=== PATIENT | female | born 1985 | race Caucasian/White ===

== ENCOUNTER 2019-12-05 00:01 | Inpatient (IN) | payer BC, SELFPAY ==
[2019-11-11 13:41] VITALS: BMI 23.0
[2019-12-05] VITALS (55 sets, daily range): BP systolic 84–135; BP diastolic 43–91; PULSE 66–142; RESP 14–15; TEMP 36.7–37.1; O2SAT 95–100; BMI 22.4
--- NOTE | 2019-12-05 00:01 | LDADM ---
This patient, Eun Montana, was admitted to Labor/Delivery/Recovery 109 on 12/05/19 at 00:01. Plans for labor, pain management and were discussed with patient. Patient/family oriented to hospital policies and general routines including ID bracelet, bed and alarms, visiting hours, pain management, procedures, bathroom and other care routines, personal items, smoking policy, room service/diet and guest tray routines, infant security routines, and visiting hours. Patient/Family are encouraged to report perceived risks to care and to ask questions if they do not understand what they are told or what they should do. See OBIX for further documentation.
[2019-12-05] MEDS: LACTATED RINGERS 1,000 ML 125 ML IV CONT ×2 (00:48→01:44)
[2019-12-05] MEDS: OXYTOCIN 30 UNITS/NS 500 ML 30 UNITS/500 ML BAG IV CONT (00:48)
[2019-12-05 00:49] LABS: Basophils Percent Auto 0.3 % (0.2-1.2); Eosinophils Absolute Auto 0.2 K/mm3 (0-0.3); Eosinophils Percent Auto 1.6 % (0-4.4); Hematocrit 37.8 % (37.0-47.0); Immature Granulocyte Absolute 0.05 K/mm3 (0.00-0.031); Immature Granulocyte Percent A 0.4 % (0-0.5); Lymphocytes Absolute Auto 2.98 K/mm3 (0.9-3.2); Lymphocytes Percent Auto 22.3 % (18.3-44.2); Mean Corpuscular HGB Conc 34.4 g/dl (32-36); Mean Corpuscular Hemoglobin 32.1 pg (26-34); Mean Corpuscular Volume 93.3 fl (80-100); Monocytes Absolute Auto 1.2 K/mm3 (0.1-0.6); Monocytes Percent Auto 8.8 % (2.6-8.5); Neutrophils Absolute Auto 8.9 K/mm3 (1.3-6.7); Neutrophils Percent Auto 66.6 % (45.5-73.1); Platelet Count Result 262 k/mm3 (150-375); Red Blood Count 4.05 M/mm3 (4.2-5.4); Red Cell Distribution Width 13.2 % (11.5-14.5); White Blood Count 13.3 K/mm3 (4.5-10.0)
[2019-12-05 01:08] LABS: Glucose Point of Care 72 (65-105)
--- NOTE | 2019-12-05 02:00 | WPDANESEPPF ---
Anes - Initial Pre Proc Eval Date/Time: 12/05/19 02:00 Surgeon: Ishaan De Leon MD Pre Op Diagnosis: Induction of labor Patient Data Age: 34 Gender: F Height: 5 ft 1 in Weight: 53.75 kg Last Vital Signs Pulse 91 12/05/19 02:00 BP 102/65 12/05/19 02:00 Pulse Ox 96 12/05/19 01:58 Allergies Allergy/AdvReac Type Severity Reaction Status Date / Time No Known Drug Allergies Allergy Unknown Verified 09/19/18 08:28 Home Medications Medication Instructions Recorded Confirmed Type -bnss fum-folic ac-om3 1 pkg PO DAILY 11/11/19 11/11/19 History [One A Day Women's DHA] Laboratory Tests 12/05/19 12/05/19 12/05/19 00:27 00:27 00:27 WBC 13.3 K/mm3 H K/mm3 (4.5-10.0) RBC 4.05 M/mm3 L M/mm3 (4.2-5.4) Hgb 13.0 g/dL g/dL (12.0-15.0) Hct 37.8 % % (37.0-47.0) MCV 93.3 fl fl (80-100) MCH 32.1 pg pg (26-34) MCHC 34.4 g/dl g/dl (32-36) RDW 13.2 % % (11.5-14.5) Plt Count 262 k/mm3 k/mm3 (150-375) MPV 11.0 fl H fl (7.4-10.4) Immature Gran % (Auto) 0.4 % % (0-0.5) Neut % (Auto) 66.6 % % (45.5-73.1) Lymph % (Auto) 22.3 % % (18.3-44.2) Charlton % (Auto) 8.8 % H % (2.6-8.5) Eos % (Auto) 1.6 % % (0-4.4) Baso % (Auto) 0.3 % % (0.2-1.2) Lymph # (Auto) 2.98 K/mm3 K/mm3 (0.9-3.2) Charlton # (Auto) 1.2 K/mm3 H K/mm3 (0.1-0.6) Eos # (Auto) 0.2 K/mm3 K/mm3 (0-0.3) Baso # (Auto) 0.0 K/mm3 K/mm3 (0.0-0.1) Abs Immat Gran (auto) 0.05 K/mm3 H K/mm3 (0.00-0.031) Absolute Neuts (auto) 8.9 K/mm3 H K/mm3 (1.3-6.7) Absolute Nucleated RBC 0.0 K/mm3 K/mm3 (0.0-0.012) Nucleated RBC % 0.0 % % (0.0-0.2) POC Capillary Glucose RPR Pending Blood Type A Positive Antibody Screen Negative 12/05/19 01:03 WBC RBC Hgb Hct MCV MCH MCHC RDW Plt Count MPV Immature Gran % (Auto) Neut % (Auto) Lymph % (Auto) Charlton % (Auto) Eos % (Auto) Baso % (Auto) Lymph # (Auto) Charlton # (Auto) Eos # (Auto) Baso # (Auto) Abs Immat Gran (auto) Absolute Neuts (auto) Absolute Nucleated RBC Nucleated RBC % POC Capillary Glucose 72 mg/dl mg/dl (65-105) RPR Blood Type Antibody Screen Patient hx anesthesia problems: other (one sided epid) Family hx anesthesia problems: none PMFSH Past Medical History Medical History (Updated 12/05/19 @ 02:01 by Collin Perez MD) PTSD (post-traumatic stress disorder) Family History Family History Grandparent Chronic obstructive pulmonary disease Diabetes mellitus Social History Social History Smoking packs per day: 0.5 Smoking cigarettes per day: 10.0 Years smoked: 10 Smoking pack-years: 5.00 Smoking status: Current every day smoker Tobacco type: cigarettes Second hand tobacco smoke exposure: Yes Substance use: never Gender identity (if verbalized by the patient): Female Spiritual care concerns: No Anes - Eval Final PreProcedure Day of Procedure 12/05/19 02:00 Patient weight: normal Heart: regular rate and rhythm Lungs: decreased breath sounds Neurological: alert and oriented ASA classification: III Emergent: no Anesthetic plan: proceed Anesthesia type and monitoring: regional epidural and standard monitoring Informed Consent: The patient's anesthetic plan and its attendant risks and benefits were discussed with the patient/family/POA. Questions were solicited and answers provided to the satisfaction of the patient/family/POA.
--- NOTE | 2019-12-05 03:53 | WPDHPUPDATE1 ---
History and Physical Update Update Date/Time: 12/05/19 03:53 History and Physical has been reviewed, including an updated exam of the patient. There are NO changes in the patient's condition. Risks, benefits, and alternatives have been discussed and questions answered. Patient agrees to proceed with procedure.
--- NOTE | 2019-12-05 03:53 | WPDOBADMIT ---
Obstetrics - Admit Note Admission Note: record reviewed. No pertinent additions to the history and/or any subsequent changes in the physical findings that are not consistent with the expected course of the were found. Additions to the history and/or subsequent changes in the physical findings follow. None.
--- NOTE | 2019-12-05 03:53 | PM.OBPRVD ---
OB - Delivery Note Procedure Delivery date: 12/05/19 Route of delivery: Episiotomy description: None Laceration description: None Specimen: No Estimated blood loss (mL): 200 Anesthesia type: Epidural Disposition: floor Narrative: Patient prepped and draped in the usual manner for this procedure. Maternal expulsive efforts readily delivered vertex. Rest of baby was delivered without difficulty. Cord was clamped and cut baby was placed on maternal abdomen. Placenta delivered spontaneously. Cervix final vulva were inspected no lacerations or tears. At this point seizure was considered terminated immediate postoperative condition of mother and baby were both excellent. Baby Weeks of gestation at delivery: 39 gender: Male Weight (pounds): 7 Weight (ounces): 3 presentation: vertex score one minute: 9 score five minutes: 9
[2019-12-05] MEDS: OXYTOCIN 30 UNITS/NS 500 ML 30 UNITS/500 ML BAG 125 UNITS IV CONT (04:16)
[2019-12-05] MEDS: WITCH HAZEL 40 PADS 1 PAD TOPICAL (05:52)
[2019-12-05] MEDS: BENZOCAINE 20% AER SPR (*SP) 56 GM CAN 1 SPRAY TOPICAL (05:52)
[2019-12-05] MEDS: LANOLIN (LANSINOH) 7.5 GM CREAM 1 APPLIC TOPICAL (05:53)
[2019-12-05] MEDS: IBUPROFEN 600 MG TABLET PO ×2 (08:16→17:39)
[2019-12-05] MEDS: MULTIVIT/MIN/PREN/FOL AC/IRON TABLET 1 TAB PO (08:16)
[2019-12-05] MEDS: DOCUSATE SODIUM 100 MG CAPSULE PO (08:16)
[2019-12-05 08:51] LABS: Rapid Plasma Reagin Non-Reactive (NonReactive)
--- NOTE | 2019-12-05 10:00 | PC.NURSE ---
Consult with pt., discussed initiating pumping with in Level II. Mother is resting and states she will call out when ready.
--- NOTE | 2019-12-05 14:00 | PC.NURSE ---
Breast pump provided due to in Level II. Instructions given on breast pump care and usage, pumping schedule, nipple care, and collection and storage of breast milk. Encouraged [id number], breast massage and manual expression to stimulate supply. Assessed patient for correct flange size, placement and draw. Patient verbalizes and demonstrates understanding of instructions.
--- NOTE | 2019-12-05 17:54 | OBPPTRN ---
Patient transferred to post room #282 via (wheelchair ). Support person present. Oriented to unit, room, information board, rooming in, admission packet and security measures. Patient verbalizes understanding.
[2019-12-05] MEDS: ACETAMINOPHEN 325 MG TABLET 650 MG PO (20:03)
[2019-12-06] MEDS: IBUPROFEN 600 MG TABLET PO ×2 (01:31→08:23)
[2019-12-06] MEDS: ACETAMINOPHEN 325 MG TABLET 650 MG PO (04:02)
[2019-12-06 05:33] LABS: Hematocrit 31.5 % (37.0-47.0); Hemoglobin 10.5 g/dL (12.0-15.0)
--- NOTE | 2019-12-06 07:46 | P.DS_ITS ---
OB - DS: Summary OB Procedures : None OB Procedures Intrapartum: Spontaneous Vag Delivery OB Procedures: : None Time Spent with Patient Time attestation: Total time spent providing and/or coordinating discharge services: DS: Data Data Completed and Pending Labs on day of discharge: Labs from last 24 hours 12/06/19 12/05/19 05:26 00:27 Hgb 10.5 L Hct 31.5 L RPR Non-reactive Discharge Plan Discharge Discharging Clinician: Ishaan De Leon Patient Disposition: Home, Self-Care Activity: as tolerated Diet: as tolerated Patient Instructions: How to Stop Smoking (DC), Antibiotic Form Stand Alone Forms: General Discharge Information Follow-up/Referrals: Ishaan De Leon MD [Physician] - 3 Weeks Discharge Medications: New ibuprofen 600 mg Tablet 600 mg PO Q6H PRN (Reason: Cramping) Qty: 30 RF: 0 Continued One A Day Women's DHA 28 mg iron- 800 mcg Combo Pack 1 pkg PO DAILY RF: 0 Date of admission: 12/05/19 00:01 Primary Care Provider: PHYSICIAN,[employer] TEAM MEMBER Admitting Provider: Ishaan De Leon Attending physician on admission: Ishaan De Leon
[2019-12-06 08:00] VITALS: BP 93/56; PULSE 64; RESP 14; TEMP 36.3
[2019-12-06] MEDS: DOCUSATE SODIUM 100 MG CAPSULE PO (08:23)
[2019-12-06] MEDS: MULTIVIT/MIN/PREN/FOL AC/IRON TABLET 1 TAB PO (08:23)
--- NOTE | 2019-12-06 09:30 | PC.NURSE ---
Consult with pt., mother reports infant is eagerly latching without difficulties or discomfort. Reviewed feeding cues, frequencies, duration of feedings, feeding elimination flow sheet, and signs of adequate intake. Requested mother to call out for RN/LC assistance next feeding for observation of feeding. Instructed feeding should be initiated three hours from start of last feeding or if feeding cues are noted before. Mother voiced understanding of information shared.
--- NOTE | 2019-12-06 14:10 | PC.NURSE ---
Mother called out for observation of feeding. Mother is able to independently latch with appropriate positioning/alignment. is latched deeply nursing eagerly, with steady draws and frequent swallowing noted. Reviewed signs of a correct latch, effective nursing and suck swallow ratio. Infant was able to maintain latch without discomfort to mother. Nipple care reviewed.
[2019-12-09 09:23] VITALS: BP 107/67; PULSE 90; RESP 18; TEMP 37
== END 2019-12-06 15:20 | disposition home or self-care (01) | DRG 560 ==
LOC: ANHLDR 05:37 → ANHOB2 07:11
PROVIDERS: Admitting Provider Obstetrics & Gynecology; Visit Provider Obstetrics & Gynecology
DX: O99.334 Smoking (tobacco) complicating childbirth (principal); Z37.0 Single live birth; Z3A.39 39 weeks gestation of pregnancy; O36.8330 Maternal care for abnormalities of the fetal heart rate or rhythm, third trimester, not applicable or unspecified; F17.210 Nicotine dependence, cigarettes, uncomplicated; O99.344 Other mental disorders complicating childbirth; F43.12 Post-traumatic stress disorder, chronic
CPT/HCPCS: 36415; 85014; 85018; 85025; 86592; 86850; 86900; 86901; A9270; J2590; J2795; J7120

== ENCOUNTER 2021-02-23 07:29 | Outpatient (CLI) | payer BC, SELFPAY ==
--- NOTE | 2021-02-23 | ECHO_ITS ---
Patient Info Name: Eun Montana Age: 35 years : 1985 Gender: Female Ht: 60 in Wt: 93 lbs BSA: 1.33 m2 HR: 62 bpm BP: 105 / 60 mmHg Heart Rhythm: Sinus Rhythm Exam Date: 02/23/2021 8:29 AM Exam Location: [facility] Pulmonary Patient Status: Outpatient Admit Date: 02/23/2021 Staff Ordering Physician: Chris, Federica Tai MD Battery Builder: Shelia Barbour RDCS Attending Provider: Chris, Federica Tai MD Exam Type: CA echo doppler color flow Study Info Indications R55 - Syncope and collapse Complete two-dimensional, color flow and Doppler transthoracic echocardiogram is performed. Summary 1. Complete two-dimensional, color flow and Doppler transthoracic echocardiogram is performed. 2. Left ventricular chamber dimension is normal. 3. Left ventricular systolic function is normal, estimated at 55-60%. 4. There is no increased left ventricular wall thickness. 5. The left ventricular diastolic function is normal. 6. There is mild tricuspid valve regurgitation. 7. The aortic valve is possibly bicuspid. Left Ventricle Left ventricular chamber dimension is normal. Left ventricular systolic function is normal, estimated at 55-60%. There is no increased left ventricular wall thickness. The left ventricular diastolic function is normal. Right Ventricle Right ventricular chamber dimension is normal. Right ventricular systolic function is normal. Left Atria Left atrial chamber dimension is normal. Right Atria Right atrial chamber dimension is normal. Atrial Septum Intact interatrial septum visualized by color flow imaging. Aortic Valve The aortic valve is possibly bicuspid. There is no aortic valve stenosis. There is trace aortic valve regurgitation. Pulmonic Valve The pulmonic valve is normal. There is no pulmonic valve stenosis. There is trace pulmonic regurgitation. Mitral Valve The mitral valve has normal leaflets. There is no mitral valve stenosis. There is trace mitral valve regurgitation. Tricuspid Valve The tricuspid valve leaflets are normal. There is no significant tricuspid valve stenosis. There is mild tricuspid valve regurgitation. No pulmonary hypertension, estimated pulmonary arterial systolic pressure is 30 mmHg. Pericardium/Pleural The pericardium appears normal. There is no pericardial effusion. Inferior Vena Cava Normal inferior vena cava with <50% collapse upon inspiration consistent with elevated right atrial pressure, 10 mmHg. Aorta The aortic root size at the sinus of Valsalva is normal. The prox ascending aorta size is normal. Left Ventricular Outflow Tract Name Value Normal LVOT 2D LVOT Diameter 1.7 cm LVOT Doppler LVOT Peak Gradient 2 mmHg LVOT Mean Gradient 1 mmHg LVOT VTI 15 cm LVOT VTI/AV VTI Ratio 0.5 LVOT Stroke Volume 35 ml LVOT CO 1.9 l/min LVOT CI 1.4 l/min/m2 Pulmonic Valve
--- NOTE | ~2021-02-23 | XR_ITS ---
EXAMINATION: XR lumbar spine 2-3V DATE: 02/23/2021 10:11 INDICATION: Low back pain TECHNIQUE: Anteroposterior and lateral views of the lumbar spine, and cone-down lateral view of the l umbosacral junction were obtained. COMPARISON: None. FINDINGS: There is no fracture, dislocation, or subluxation. The vertebral body heights, alignment, a nd intervertebral disc spaces are normal. The paravertebral soft tissues are unremarkable. IMPRESSION: 1. No acute osseous abnormality. Reviewed, dictated and finalized at location A.
== END 2021-02-23 07:30 | disposition home or self-care (01) ==
PROVIDERS: PCP Family Medicine; Visit Provider Family Medicine
DX: R55 Syncope and collapse (principal); R63.4 Abnormal weight loss; I36.1 Nonrheumatic tricuspid (valve) insufficiency
CPT/HCPCS: 72100; 93306

== ENCOUNTER 2022-01-10 17:11 | Emergency (ER) | payer BC, SELFPAY ==
--- NOTE | ~2022-01-10 | XR_ITS ---
EXAMINATION: XR chest 2V Exam Date/Time: 01/10/2022 19:10 CDT CLINICAL HISTORY: reports pleurisy since 06/24 left rib pain today Comparison: 12/27/11. RESULT: Lines, tubes, and devices: None. Lungs and pleura: Clear. Cardiomediastinal silhouette: Stable cardiomediastinal silhouette. Other: No acute osseous or upper abdominal finding. IMPRESSION: No acute cardiopulmonary process Reviewed, dictated and finalized at location K.
[2022-01-10 17:38] VITALS: BP 119/60; PULSE 81; RESP 21; TEMP 36.6; O2SAT 100
[2022-01-10 19:05] VITALS: BP 119/60; PULSE 81; RESP 16; TEMP 36.8; O2SAT 100
--- NOTE | 2022-01-10 19:38 | ED.BACK ---
HPI - Back Pain/Injury General Chief Complaint: Back Pain/Injury Stated Complaint: rib/back/hip pain Time Seen by Provider: 01/10/22 19:03 History of Present Illness HPI Narrative: 36-year-old female presents to the emergency room with complaints of left lower rib cage pain. Patient states the pain started after she coughed. Patient states that she has a frequent history of pleuritis, but this pain feels different. Patient states that she felt a pop after she coughed. Pain is worse with movement and palpation. Related Data Home Medications Medication Instructions Recorded Confirmed One A Day Women's DHA 1 pkg PO DAILY 11/11/19 11/11/19 Allergies Allergy/AdvReac Type Severity Reaction Status Date / Time No Known Allergies Allergy Verified 01/10/22 17:43 Review of Systems Review of Systems: CONSTITUTIONAL: Denies fever, chills, or sweats. EYES: Denies visual changes, redness, or discharge. ENT: Denies rhinorrhea, congestion, sore throat, or otalgia. CARDIOVASCULAR: Denies chest pain, palpitations, or edema. RESPIRATORY: Denies cough or dyspnea. GASTROINTESTINAL: Denies abdominal pain, nausea, vomiting, or diarrhea. GENITOURINARY: Denies dysuria or hematuria. SKIN: Denies rash or itching. MUSCULOSKELETAL: Reports left lateral rib cage pain NEUROLOGIC: Denies headache, numbness, dizziness, or weakness. PSYCHIATRIC: Denies anxiety or depression. PMFSH Past Medical History Medical History PTSD (post-traumatic stress disorder) Family History Family History Grandparent Chronic obstructive pulmonary disease Diabetes mellitus Social History Social History Smoking packs per day: 0.5 Smoking cigarettes per day: 10.0 Years smoked: 10 Smoking pack-years: 5.00 Smoking status: Current every day smoker Tobacco type: cigarettes Second hand tobacco smoke exposure: Yes Substance use: never Gender identity (if verbalized by the patient): Female Spiritual care concerns: No Exam Narrative: GENERAL: Well-appearing, well-nourished, and in no acute distress. HEAD: Normocephalic, atraumatic. EYES: PERRLA and EOMI. CHEST: Clear to auscultation. No respiratory distress. No wheezes rales or rhonchi. Tenderness to the left lower lateral ribs. No ecchymosis. No flail chest. HEART: Regular rate and rhythm. No murmur heard. Normal peripheral pulses. ABDOMEN: Soft, nontender, nondistended, normal active bowel sounds. EXTREMITIES: Normal range of motion. No edema. SKIN: Warm, dry, no rash. NEURO: No focal deficits. Alert and oriented x3. PSYCH: Normal mood and affect. Course Vital Signs Vital signs: Vital Signs Temperature 36.6 C 01/10/22 17:38 Pulse Rate 81 01/10/22 17:38 Respiratory Rate 21 H 01/10/22 17:38 Blood Pressure 119/60 01/10/22 17:38 Pulse Oximetry 100 01/10/22 17:38 Temperature 36.8 C 01/10/22 19:05 Pulse Rate 81 01/10/22 19:05 Respiratory Rate 16 01/10/22 19:05 Blood Pressure 119/60 01/10/22 19:05 Pulse Oximetry 100 01/10/22 19:05 MDM - Back Pain/Injury Imaging Data Radiologist's impression: Impressions Chest X-Ray 01/10/22 19:36 IMPRESSION: No acute cardiopulmonary process Discharge Plan Discharge Clinical Impression: Chest wall muscle strain Qualifiers: Encounter type: initial encounter Qualified Code(s): S29.011A - Strain of muscle and tendon of front wall of thorax, initial encounter Patient Disposition: Home, Self-Care Condition: Stable Instructions: Antibiotic Form, Thoracic Back Strain (ED) Prescriptions: New methocarbamol 500 mg tablet 500 mg PO TID Qty: 14 RF: 0 No Action One A Day Women's DHA 28 mg iron- 800 mcg Combo Pack 1 pkg PO DAILY RF: 0 ibuprofen 600 mg Tablet 600 mg PO Q6H PRN (Reason:
[2022-01-10] MEDS: methocarbamoL 500 MG TABLET PO (20:15)
== END 2022-01-10 20:16 | disposition home or self-care (01) ==
PROVIDERS: Emergency Provider Nurse Practitioner Family; PCP Family Medicine
DX: S29.011A Strain of muscle and tendon of front wall of thorax, initial encounter (principal); F17.210 Nicotine dependence, cigarettes, uncomplicated; X50.9XXA Other and unspecified overexertion or strenuous movements or postures, initial encounter
CPT/HCPCS: 71046; 99283; A9270

== ENCOUNTER 2022-01-17 11:01 | Outpatient (CLI) | payer BC, SELFPAY ==
--- NOTE | ~2022-01-17 | XR_ITS ---
EXAM: XR ribs LT 2V HISTORY: NO INJURY PAINLEFT LOWER LATERAL PAIN AND POPPING . COMPARISON: 01/10/2022. FINDINGS: Normal mineralization. Hypoplastic right 12th rib. No nondisplaced mildly angulated subacu te fracture of the left ninth and 10th anterolateral rib. Multiple old healed rib fractures on the le ft. No other fractures identified. No lytic or blastic lesion. Joint spaces maintained. No erosion or periosteal change. Soft tissues within normal limits. IMPRESSION: Mildly angulated, otherwise nondisplaced subacute fractures of the left anterolateral shayan th and 10th ribs. Reviewed, dictated and finalized at location K. IMPRESSION: Mildly angulated, otherwise nondisplaced subacute fractures of the left anterolateral ninth and 10th ribs.
== END 2022-01-17 11:02 | disposition home or self-care (01) ==
PROVIDERS: PCP Family Medicine; Visit Provider Physician Assistant
DX: R07.81 Pleurodynia (principal); S22.42XA Multiple fractures of ribs, left side, initial encounter for closed fracture
CPT/HCPCS: 71100

== ENCOUNTER 2023-12-29 09:10 | Emergency (ER) | payer BC, SELFPAY ==
[2023-12-29 09:40] VITALS: BP 110/52; PULSE 76; RESP 16; TEMP 36.7; O2SAT 100
--- NOTE | 2023-12-29 10:13 | ED.FEMALEGU ---
HPI - Female Genitourinary General Chief complaint: Urogenital-Female Stated complaint: UTI Time Seen by Provider: 12/29/23 10:13 Source: patient Mode of arrival: ambulatory Limitations: no limitations History of Present Illness HPI Narrative: 38-year-old female presents with complaint of urinary frequency, urgency, dysuria for 2 days. Reports suprapubic cramping. Afebrile. Denies nausea vomiting. All systems reviewed and negative except as noted above. Related Data Allergies Allergy/AdvReac Type Severity Reaction Status Date / Time No Known Allergies Allergy Verified 12/29/23 09:31 Review of Systems Review of Systems: CONSTITUTIONAL: Denies fever, chills, or sweats. EYES: Denies visual changes, redness, or discharge. ENT: Denies rhinorrhea, congestion, sore throat, or otalgia. CARDIOVASCULAR: Denies chest pain, palpitations, or edema. RESPIRATORY: Denies cough or dyspnea. GASTROINTESTINAL: Denies abdominal pain, nausea, vomiting, or diarrhea. GENITOURINARY: Reports dysuria, frequency, urgency. Denies hematuria. SKIN: Denies rash or itching. MUSCULOSKELETAL: Denies back pain, joint pain, or myalgia. NEUROLOGIC: Denies headache, numbness, or weakness. PSYCHIATRIC: Denies anxiety or depression. All other systems reviewed are negative, except as documented in HPI. PMFSH Past Medical History Medical History PTSD (post-traumatic stress disorder) Family History Family History Grandparent Chronic obstructive pulmonary disease Diabetes mellitus Social History Social History Smoking packs per day: 0.5 Smoking cigarettes per day: 10.0 Years smoked: 10 Smoking pack-years: 5.00 Smoking status: Current every day smoker Tobacco type: cigarettes Second hand tobacco smoke exposure: Yes Substance use: never Gender identity (if verbalized by the patient): Female Spiritual care concerns: No Comments At time of signature, agree with nursing past medical, surgical, social and family history. There is no relevant family history pertinent to the presenting complaint. Exam Narrative: GENERAL: This is a well-nourished, well-developed patient, in no apparent distress. HEAD: normocephalic, atraumatic. EYES: PERRL. Sclera clear/white. Vision is grossly intact. EARS: External ears normal NOSE: External nose normal NECK: Neck supple, non-tender without lymphadenopathy, masses or thyromegaly. CARDIOVASCULAR: Regular rate and rhythm without murmurs, gallops, or rubs. RESPIRATORY: Clear to auscultation. Breath sounds equal bilaterally. No wheezes, rales, or rhonchi. SKIN: warm, Dry, intact with no suspicious lesions or rash, good texture and turgor. NEURO: awake, alert, and oriented to person, place and time. There were no obvious focal neurologic abnormalities. EXTREMITIES: No joint tenderness, effusion, or edema noted. Course Course Level of Care: Express Care Visit Vital Signs Vital signs: Vital Signs Temperature 36.7 C 12/29/23 09:40 Pulse Rate 76 12/29/23 09:40 Respiratory Rate 16 12/29/23 09:40 Blood Pressure 110/52 L 12/29/23 09:40 Pulse Oximetry 100 12/29/23 09:40 Oxygen Delivery Room Air 12/29/23 09:40 Temperature 36.7 C 12/29/23 09:40 Pulse Rate 76 12/29/23 09:40 Respiratory Rate 16 12/29/23 09:40 Blood Pressure 110/52 L 12/29/23 09:40 Pulse Oximetry 100 12/29/23 09:40 Oxygen Delivery Room Air 12/29/23 09:40 reviewed MDM - Female Genitourinary MDM Narrative Medical decision making narrative: Patient is aware of diagnosis, understands and agrees to treatment plan. Anticipatory guidance given. Patient agrees to follow-up as directed and is aware of reasons to seek care at the emergency department. Portions of this record may have been created with voice recog
== END 2023-12-29 10:30 | disposition home or self-care (01) ==
PROVIDERS: Emergency Provider Nurse Practitioner Family; PCP Family Medicine
DX: N39.0 Urinary tract infection, site not specified (principal); B96.20 Unspecified Escherichia coli [E. coli] as the cause of diseases classified elsewhere; F17.210 Nicotine dependence, cigarettes, uncomplicated
CPT/HCPCS: 81003; 87077; 87086; 87088; 87186; 99213; G0463

== ENCOUNTER 2025-02-07 11:00 | Emergency (ER) | payer OTHER, SELFPAY ==
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
--- NOTE | ~2025-02-07 | XR_ITS ---
AP and lateral views of the right tibia/fibula Clinical History: Pain Findings: No acute fracture or dislocation is seen. Osseous alignment is anatomic. Joint spaces are p reserved without significant erosive or degenerative change. Soft tissues are unremarkable. Impression: Unremarkable right tib-fib radiographs. Reviewed, dictated and finalized at location . Impression: Unremarkable right tib-fib radiographs.
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
--- NOTE | ~2025-02-07 | XR_ITS ---
Left Shoulder Technique: AP and scapular Y views were obtained. Clinical History: Pain Findings: No fracture or dislocation is seen. Osseous alignment is anatomic. The glenohumeral and acr omioclavicular joint spaces are preserved. Soft tissues are unremarkable. Impression: Unremarkable left shoulder radiographs. Reviewed, dictated and finalized at [facility]. Impression: Unremarkable left shoulder radiographs.
--- NOTE | ~2025-02-07 | XR_ITS ---
XR femur LT min 2V 02/07/2025 13:54 Indication: Left leg pain Procedure: 2 views left femur Comparison: No prior studies for comparison. Findings: No fracture, subluxation or dislocation. No significant soft tissue abnormality. No foreign bodies. Impression: 1: No acute fracture. Reviewed, dictated and finalized at location A. Impression: 1: No acute fracture.
--- NOTE | ~2025-02-07 | XR_ITS ---
Right wrist Technique: PA, oblique, lateral, and ulnar deviation views were obtained. Clinical History: Pain Findings: No acute fracture or dislocation is seen. Osseous alignment is anatomic. Joint spaces are p reserved. Soft tissues are unremarkable. Impression: Unremarkable right wrist radiographs. Reviewed, dictated and finalized at location . Impression: Unremarkable right wrist radiographs.
--- NOTE | ~2025-02-07 | XR_ITS ---
Right Shoulder Technique: AP and scapular Y views were obtained. Clinical History: Pain Findings: No fracture or dislocation is seen. Osseous alignment is anatomic. The glenohumeral and acr omioclavicular joint spaces are preserved. Soft tissues are unremarkable. Impression: Unremarkable right shoulder radiographs. Reviewed, dictated and finalized at [facility]. Impression: Unremarkable right shoulder radiographs.
--- NOTE | ~2025-02-07 | XR_ITS ---
XR foot LT min 3V 02/07/2025 13:54 Indication: Left foot pain Procedure: 4 views left foot Comparison: No prior studies for comparison. Findings: No fracture, subluxation or dislocation. No significant soft tissue abnormality. No foreign bodies. Impression: 1: No acute fracture. Reviewed, dictated and finalized at location A. Impression: 1: No acute fracture.
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
--- OUTSIDE RECORDS SUMMARY | 2025-02-07 11:02 | XMS_ITS | CONTINUITY OF CARE DOCUMENT ---
Author Name juwan echeverria Address Unknown Organization [facility] Address [address] [place] [address] Phone [phone] Care Team Providers Care Er Physician Name Role Phone Young BYNMU, Pablo Unavailable DWAYNE BYNUM, MOUNIKA Tai Unavailable [phone] DWAYNE BYNUM, MOUNIKA Tai Unavailable [phone] PROBLEMS Condition Status Date Provider Notes Cardiovascular screening active Pablo lowe MD Family History of Hypertension: active Shanika Vidal MD Chest pain active Pablo Vidal MD Shortness of breath (SOB) active Pablo gerard MD Dizziness active Pablo Vidal MD Near Syncope active Pablo Vidal MD Anxiety/ depression active Pablo Simon Headaches active Pablo Vidal MD ENCOUNTERS Date Type Provider Location Encounter Diag nosis - In-person encounter Office Visit Pablo Vidal MD [place] [facility] Cardiovascular screeningFamily History of Hypertension:Chest painShortness of breath (SOB)DizzinessNear SyncopeAnxiety/ depressionHeadaches VITAL SIGNS Date Observation Value Provider Body Mass Index (Ratio) 17.97 kg/m2 Shanika Vidal MD blood pressure, diastolic 60 mm[Hg] Susan nkLogic blood pressure, systolic 110 mm[Hg] Linn Mcdermott blood pressure, resting No Cam HaqueTino blood pressure, diastolic 60 mm[Hg] Ju ReynosoTino blood pressure, systolic 110 mm[Hg] Yeny ReynosoTino oxygen saturation, oximetry 98 % [facility] E&M 16 /min [facility] pulse rate 74 /min [facility] weight E&M 92 [lb_av] [facility] height E&M 60 [in_i] [facility] ALLERGIES No Known Drug Allergies HISTORY OF MEDICATION USE Medication Status Instructions Dates Provider Indications Com ments escitalopram oxalate 10 mg tablet active Take 1 tablet by mouth once a day Tammy AngelesTino SOCIAL HISTORY Date Observation Value Provider Underweight yes Pablo Vidal MD number of grandchildren Pablo Vidal MD social history reviewed E&M revi ewed - no changes required Pablo Vidal MD number of years as a smoker 20 a [facility], total pack/day 1 [facility] cigarette use yes [facility] smoking status Current every day smoker Trey khan AngelesAdamaTino FAMILY HISTORY Family Member Condition Maternal Grandmother Family History of H ypertension: Maternal Grandmother Family History of D iabetes: Paternal Grandmother Family History of C ongestive Heart Failure: Paternal Grandmother Family History of D iabetes: INSURANCE PROVIDERS Payer name Policy type / Coverage type [employer] libertarian ID [facility] [id number] ADVANCE DIRECTIVES Name Date DISCUSSED - NO DECISION MADE TREATMENT PLAN Date Name Performer [id number],C,Continues on Escitalopram. Pablo Vidal MD [id number],C,R eports intermittent chest pain and SOB on exertion when performing routine daily activities such as cleaning. She had a recent echo showing normal LV function, EF normal at 55-60%. Recent lab work was unremarkable. Her EKG today shows the patient in sinus rhythm. Pablo Vidal MD [id number],C,P atient reports intermittent episodes of near syncope during which she becomes suddenly dizzy and nauseous. Symptoms have become more frequent within the last year. Will arrange 2 week heart monitor. Pablo Vidal MD Cardiology:Continues on Escitalo pra. Pablo Vidal MD Cardiology:Reports i ntermittent chest pain and SOB on exertion when performing routine daily activities such as cleaning. She had a recent echo showing normal LV function, EF normal at 55-60%. Recent lab work was unremarkable. Her EKG today shows the patient in sinus rhythm. Pablo Vidal MD Cardiology:Patient r eports intermittent episodes of near syncope during which she becomes suddenly dizzy and nauseous. Symptoms have become more frequent within the last year. Will arrange 2 week heart monitor. Pablo Vidal MD Date Name Monitor - Telemetry (Mobile Cardiac) HISTORY OF PROCEDURES Procedure Date Procedure Name Provider Procedure Notes S tatus EKG Pablo Vidal MD complet ed
--- OUTSIDE RECORDS SUMMARY | 2025-02-07 11:17 | XMS_ITS | CONTINUITY OF CARE DOCUMENT ---
Author Name juwan echeverria Address Unknown Organization [facility] Address [address] [place] [address] Phone [phone] Care Team Providers Care Marine Operations Coordinator Name Role Phone Young BYNUM, Pablo Unavailable DWAYNE BYNUM, MOUNIKA Tai Unavailable DWAYNE BYNUM, MOUNIKA Tai Unavailable [phone] PROBLEMS Condition Status Date Provider Notes Cardiovascular [...] In-person encounter Office Visit Pablo Vidal MD [place] [facility] Cardiovascular screeningFamily History of Hypertension:Chest painShortness [...] Yeny ReynosoTino oxygen saturation, oximetry 98 % [facility] E&[facility] 16 /min [facility] pulse rate 74 /min [facility] weight E&M 92 [lb_av] [facility] height E&M 60 [in_i] [facility] ALLERGIES No Known Drug Allergies HISTORY OF [...] of years as a smoker 20 a [facility], total pack/day 1 [facility] use yes [facility] Current every day smoker Trey khan AngelesAdamaTino FAMILY HISTORY Family Member Condition Maternal Grandmother Family History of H ypertension: Maternal Grandmother Family History of D iabetes: Paternal Grandmother Family History of C ongestive Heart Failure: Paternal Grandmother Family History of D iabetes: INSURANCE PROVIDERS Payer name Policy type / Coverage type [employer] party ID [facility] [id number] ADVANCE DIRECTIVES Name Date DISCUSSED - NO DECISION MADE TREATMENT PLAN Date Name Performer [id number],C,Continues on Escitalopram. Pablo Vidal MD [id number],C,R eports intermittent chest pain and SOB on exertion when performing routine daily activities such as cleaning. She had a recent echo showing normal LV function, EF normal at 55-60%. Recent lab work was unremarkable. Her EKG today shows the patient in sinus rhythm. Pablo Vidal MD [id number],C,P atient reports intermittent episodes of near syncope [...]
--- NOTE | 2025-02-07 11:53 | PC.NURSE ---
patient called asking for ibuprofen and a blanket. took patient a warm blanket and advised that Farida would be in shortly to see her and she is aware that she is in pain. Farida DIAZ and Ashley Sargent RN aware.
[2025-02-07 12:37] LABS: Basophils Percent Auto 0.5 % (0.2-1.2); Eosinophils Percent Auto 0.2 % (0-4.4); Hematocrit 37.8 % (37.0-47.0); Hemoglobin 12.4 g/dL (12.0-15.0); Immature Granulocyte Absolute 0.03 K/mm3 (0.00-0.031); Immature Granulocyte Percent A 0.4 % (0-0.5); Lymphocytes Absolute Auto 1.53 K/mm3 (0.9-3.2); Lymphocytes Percent Auto 17.9 % (18.3-44.2); Mean Corpuscular HGB Conc 32.8 g/dl (32-36); Mean Corpuscular Hemoglobin 30.8 pg (26-34); Mean Corpuscular Volume 93.8 fl (80-100); Mean Platelet Volume 10.2 fl (7.4-10.4); Monocytes Absolute Auto 0.6 K/mm3 (0.1-0.6); Monocytes Percent Auto 7.4 % (2.6-8.5); Neutrophils Absolute Auto 6.3 K/mm3 (1.3-6.7); Neutrophils Percent Auto 73.6 % (45.5-73.1); Platelet Count Result 232 k/mm3 (150-375); Red Blood Count 4.03 M/mm3 (4.2-5.4); Red Cell Distribution Width 12.4 % (11.5-14.5); White Blood Count 8.6 K/mm3 (4.5-10.0)
[2025-02-07 12:44] VITALS: BP 106/54; PULSE 69; RESP 14; TEMP 36.4; O2SAT 99
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
[2025-02-07 12:48] LABS: Alanine Aminotransferase 16 U/L (6-35); Albumin Level 4.5 g/dL (3.5-5.1); Alkaline Phosphatase 40 U/L (38-126); Anion Gap 7 mmol/L (4-12); Aspartate Amino Transferase 25 U/L (14-36); Bilirubin,Total 0.2 mg/dL (0.2-1.3); Blood Urea Nitrogen 8 mg/dL (7-17); Calcium 9.3 mg/dL (8.4-10.2); Carbon Dioxide 23 mmol/L (22-30); Chloride 110 mmol/L (98-107); Estimated Glomerular Filt Rate > 60; Glucose 90 mg/dL (65-110); Sodium 140 mmol/L (137-145); Total Protein 7.4 g/dL (6.3-8.2)
[2025-02-07] MEDS: SODIUM CHLORIDE 0.9% IV 1,000 ML 999 ML IV CONT (12:53)
[2025-02-07] MEDS: MORPHINE SULFATE (*CRX) 2 MG/ML INJ IV PUSH (12:55)
[2025-02-07 13:03] LABS: BEDSIDEPREGUCG Negative (Negative)
[2025-02-07 13:37] LABS: Add Urine Microscopic? YES; Appearance Urine Clear (Clear); Bacteria Urine None Seen /hpf; Bilirubin Urine Negative (Negative); Blood Urine Negative (Negative); Color Urine Yellow (Yellow); Glucose Urine UA Negative (Negative); Ketones Urine Negative (Negative); Leukocyte Esterase Ur 1+ LEU/UL (Negative); Need Manual Microscopic Reviewed; Nitrate Urine Negative (Negative); Non Pathogenic Casts 0-2; Protein Urine Negative (Negative); RBC Urine 0-2 /hpf (0-2); Specific Grav Ur 1.006 (1.001-1.035); Squamous Epithelial Cell Urine None Seen /hpf (Few); Urobilinogen Urine 0.2 mg/dL (<2.0); WBC Urine 0-5 /hpf (0-3); pH Urine 8.5 (5.0-9.0)
[2025-02-07 15:14] VITALS: BP 107/62; PULSE 80; RESP 16; O2SAT 97
[2025-02-07] MEDS: KETOROLAC 15 MG/ML VIAL (*BKC) IV PUSH (15:17)
== END 2025-02-07 15:28 | disposition home or self-care (01) ==
PROVIDERS: Emergency Provider Registered Nurse; PCP Family Medicine
DX: S06.0X0A Concussion without loss of consciousness, initial encounter (principal); S13.4XXA Sprain of ligaments of cervical spine, initial encounter; S29.012A Strain of muscle and tendon of back wall of thorax, initial encounter; S39.012A Strain of muscle, fascia and tendon of lower back, initial encounter; F43.10 Post-traumatic stress disorder, unspecified; F17.210 Nicotine dependence, cigarettes, uncomplicated; N83.11 Corpus luteum cyst of right ovary; V49.40XA Driver injured in collision with unspecified motor vehicles in traffic accident, initial encounter
CPT/HCPCS: 36415; 70450; 70486; 71260; 72125; 72129; 72132; 73030; 73110; 73552; 73590; 73630; 74177; 80053; 81001; 81025; 85025; 87086; 96361; 96374; 96375; 99284; J1885; J2270; J7030; L0140; Q9967

== ENCOUNTER 2025-02-18 11:48 | Emergency (ER) | payer OTHER, SELFPAY ==
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
== END 2025-02-18 12:51 | disposition home or self-care (01) ==
DX: R11.0 Nausea (principal); R10.13 Epigastric pain; R51.9 Headache, unspecified; V49.9XXA Car occupant (driver) (passenger) injured in unspecified traffic accident, initial encounter; F17.210 Nicotine dependence, cigarettes, uncomplicated
CPT/HCPCS: 99213; G0463